=== PATIENT | female | born 1965 | race Caucasian/White ===

== ENCOUNTER → 2020-10-05 | Outpatient (CLI) | payer BC | LOC: KOH-I 11:00 | DX: F17.210 Nicotine dependence, cigarettes, uncomplicated (principal); R91.8 Other nonspecific abnormal finding of lung field | CPT/HCPCS: 71271 ==

== ENCOUNTER → 2021-05-03 | Outpatient (CLI) | payer BC | LOC: KOH-I 11:56 | DX: M79.675 Pain in left toe(s) (principal) | CPT/HCPCS: 73630 ==